=== PATIENT | male | born 1940 | race Caucasian/White ===

== ENCOUNTER 2024-12-19 12:54 | Outpatient (CLI) | payer MEDICARE, SELFPAY ==
--- NOTE | ~2024-12-19 | PE_ITS ---
EXAMINATION: PET_PETPSMAST_PT DATE: 12/19/2024 15:39 INDICATION: Prostate cancer TECHNIQUE: 5.489 mCi of Illucix Ga-[id number]) was administered i.v. Low dose computed kayla graphy (CT) images were acquired from the base of the brain to the base of the brain to the proximal thighs for attenuation correction and anatomic localization. Positron emission tomography (PET) image s were acquired in the same distribution beginning 77 minutes after injection. Images including fused PET/CT images were reconstructed in axial, coronal, and sagittal planes. Automated exposure control technique was employed. The dose-length product was 1203.34mGy-cm. COMPARISON: None FINDINGS: Head/neck: Typical pattern of symmetric physiologic increased activity in the lacrimal, parotid and submandibula r glands as well as along the mucosa of the nasal and oral cavities, pharynx and hypopharynx. No path ologically enlarged cervical lymphadenopathy or suspicious foci of increased uptake in the visualized head or neck. Chest: Symmetric motion and mild atelectasis in the bilateral lower lungs. Couple more nodular opacities aayush suring 9 mm and 11 mm in the right middle lobe which appear part solid and which are without abnormal PSMA activity. A couple additional nodules measuring up to 8mm in the right upper lobe. No pleural e ffusion. Cardiomegaly. Atherosclerotic coronary artery calcifications. No pericardial effusion. Cardi ac pacemaker with lead tips at the right atrial appendage and near the apex of the right ventricle. T horacic aorta is normal in caliber. No pathologically enlarged with PSMA avid thoracic lymphadenopath y. Abdomen/pelvis/proximal thighs: Physiologic renal accumulation and excretion of activity in the kidneys, bladder and along portions o f ureters. 1 cm exophytic cyst at the lower pole of the right kidney. Postoperative change of prior p rostatectomy. No abnormal nodular soft tissue deposits in the vicinity of the prostatectomy bed to enciso ggest locally recurrent disease. Assessment for PSMA uptake in this region is limited by the urine ac tivity in the bladder. Surgical clips situated between the bladder and the rectum which are likely re lated to resection of the seminal vesicles which are not visualized. There is a small focus of increa sed uptake with maximal SUV of 7.9 cm immediately cephalad to the clips along a loop of small bowel a nd this is likely physiologic. No abnormal soft tissue density along side the clips to suggest metast atic disease. Moderate uptake scattered throughout the bowels with typical duodenal and proximal jeju nal predominance and without radiologic correlate, also likely physiologic. Normal appendix. Normal d egree and slightly heterogenous pattern of increased uptake throughout the liver and spleen without r adiologic correlate or dominant PSMA avid lesion. The gallbladder, pancreas and bilateral adrenal gla nds are normal. Small fat-containing umbilical hernia. No other abnormal foci of increased uptake or pathologically enlarged lymphadenopathy in the abdomen, pelvis or proximal thighs. Musculoskeletal: Reverse right total shoulder arthroplasty. Partially visualized old right femoral diaphyseal fracture fixed with antegrade intramedullary mayi. There is heterotopic ossification overlying the proximal ti p of the intramedullary mayi cephalad to the right greater trochanter. Moderate to severe cervical, th oracic and lumbar spondylosis. Moderate left hip osteoarthritis. No suspicious lytic, blastic or abno rmally PSMA avid bone lesions to suggest metastatic disease. IMPRESSION: 1. Postoperative change of prior prostatectomy and likely resection of the seminal vesicles. No lesio n suspicious for metastatic disease. 2. A few indeterminate small nodular opacities in the right upper and middle lobes, the largest measu ring up to 1.1 cm and which are without PSMA activity. These could be infectious, inflammatory or mal ignant in etiology. Recommend correlation with any prior outside CT imaging and one month follow-up l ow-dose noncontrast chest CT. Reviewed, dictated and finalized at location B. IMPRESSION: 1. Postoperative change of prior prostatectomy and likely resection of the semi nal vesicles. No lesion suspicious for metastatic disease. 2. A few indeterminate small nodular opacities in the right upper and middle lo bes, the largest measuring up to 1.1 cm and which are without PSMA activity. Th klaudia could be infectious, inflammatory or malignant in etiology. Recommend corre lation with any prior outside CT imaging and one month follow-up low-dose nonco ntrast chest CT.
== END 2024-12-19 12:55 | disposition home or self-care (01) ==
PROVIDERS: Visit Provider Urology
DX: C61 Malignant neoplasm of prostate (principal); Z98.890 Other specified postprocedural states
CPT/HCPCS: 78815; A9596